=== PATIENT | female | born 2000 | race African-American/Black ===

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

== ENCOUNTER 2019-08-16 12:43 | Emergency (ER) | payer MEDICAID ==
[~2019-08-16] VITALS: Ht 157.5 cm; Wt 56.7 kg
[2019-08-16 16:33] VITALS: BP 132/72
== END 2019-08-16 16:35 | disposition home or self-care (01) ==
LOC: ER 12:50
DX: D24.1 Benign neoplasm of right breast (principal); J45.909 Unspecified asthma, uncomplicated; Z91.013 Allergy to seafood
CPT/HCPCS: 76642